=== PATIENT | female | born 1970 | race Caucasian/White ===

== ENCOUNTER 2016-11-19 15:36 | Emergency (ER) | payer OTHER ==
[~2016-11-19] VITALS: Ht 170.2 cm; Wt 102.1 kg
--- NOTE | 2016-11-19 16:10 | ER.PDOC ---
General Chief Complaint: Abdomen Pain Stated Complaint: LOWER L ABD PAIN Time seen by MD: 16:00 Source: patient Exam Limitations: no limitations History of Present Illness Initial Comments llq pain felt with twisting Timing/Duration: 1 hour Severity/Quality: mild Radiation: no radiation Associated Symptoms: denies symptoms Exacerbated by: movements Relieved By: supine Allergies: Coded Allergies: No Known Allergies (Unverified , 11/19/16) Vital Signs First Vital Signs Date Time Temp Pulse Resp B/P (MAP) Pulse Ox O2 Delivery O2 Flow Rate FiO2 11/19/16 15:46 98.8 96 18 99 11/19/16 15:49 156/91 (112) Last Vital Signs Date Time Temp Pulse Resp B/P (MAP) Pulse Ox O2 Delivery O2 Flow Rate FiO2 11/19/16 15:49 98.8 96 18 156/91 (112) 99 Past Medical History Medical History: hypertension LMP (females 10-50): 3 weeks Family History Significant Family History: no pertinent family hx Social History Smoking: less than 1 pack/day Alcohol Use: occassionally Drug Use: none Constitutional: denies fever EENTM: denies ear pain Cardiovascular: denies chest pain Gastrointestinal: denies abdomen distended Genitourinary: denies burning Musculoskeletal: denies back pain Psychiatric/Neurological: denies anxiety All Other Systems: Reviewed and Negative Physical Exam General Appearance: No Apparent Distress, WD/WN HEENT: PERRL/EOMI, Normal ENT Inspection, TMs Normal, Pharynx Normal Neck: Non-Tender, Full Range of Motion, Supple, Normal Inspection Respiratory: chest non-tender, lungs clear, normal breath sounds, no respiratory distress, no accessory muscle use Cardiovascular: Normal Peripheral Pulses, Regular Rate, Rhythm, No Edema, No Gallop, No JVD, No Murmur Gastrointestinal: Other (no hernia palpated soft non tender without rebound) Back: Normal Inspection, No CVA Tenderness, No Vertebral Tenderness Extremities: Normal Range of Motion, Non-Tender, Normal Inspection, No Pedal Edema, No Calf Tenderness, Normal Capillary Refill, Pelvis Stable 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
[2016-11-19 16:21] VITALS: BP 139/76
== END 2016-11-19 16:18 | disposition home or self-care (01) ==
LOC: ER 15:36
DX: R10.32 Left lower quadrant pain (principal); I10 Essential (primary) hypertension; F17.200 Nicotine dependence, unspecified, uncomplicated; X50.1XXA Overexertion from prolonged static or awkward postures, initial encounter; Y93.89 Activity, other specified; Y92.89 Other specified places as the place of occurrence of the external cause; Y99.8 Other external cause status
CPT/HCPCS: 99283

== ENCOUNTER → 2017-01-28 | Outpatient (CLI) | payer OTHER ==
--- NOTE | 2017-01-29 13:14 | STRESS ---
DATE OF SERVICE: 01/28/2017 INDICATIONS: A 46-year-old lady with chest pain, elected for evaluation with a stress test. The patient presented to the [facility] in a fasting condition as an outpatient on 01/28/2017. Baseline blood pressure was 130/78, heart rate of 67. EKG, normal sinus rhythm without any ischemic changes or blocks. The patient was exercised on standard Kaushal protocol. Total exercise time was 7 minutes 8 seconds achieving maximum heart rate of 146 beats per minute representing 100% of maximum age predicted heart rate. Maximum blood pressure reported was 182/76. Maximum METS were 8.76 METS. The blood pressure was noted and vital signs were monitored during exercise on standard Kaushal protocol. At stage 1, blood pressure was 135/71, heart rate of 112. At stage 2, blood pressure was 182/76, heart rate of 129. Recovery phase was uneventful, 6 minutes into recovery, blood pressure was 114/73, heart rate of 94, no EKG changes of ischemia noted, no arrhythmia was seen. The patient had normal hemodynamic response. Reason for termination was exertional shortness of breath, but no chest pain. IMPRESSION: 1. Normal stress test by EKG criteria. 2. Normal stress test by clinical criteria. 3. Average METS achieved with adequate functional capacity. 4. Normal hemodynamic response. 5. No arrhythmia was seen. 6. Fair exercise capacity with normal chronotropic competence. 7. Recovery was uneventful. This study qualifies for low risk for obstructive coronary artery disease by stress test criteria. Natalia Clement MD DR: CHRIS/homero JOB# [id number]
--- NOTE | 2017-01-29 16:01 | ECHO ---
DATE OF SERVICE: 01/28/2017 INDICATIONS: A 46-year-old lady with palpitations and hypertension, who elected for an echocardiographic study. FINDINGS: 1. Study quality was good. Underlying rhythm was sinus rhythm. 2. LV function was preserved at 60%. LV dimensions were normal at 5.8 cm in end-diastolic dimension. Minimal concentric LVH. No LVOT obstruction. Septal thickness was in the upper limits of normal. 3. RV size and EF were normal. 4. Both atria were normal in size. 5. Mitral valve was visualized: Trace regurgitation, no stenosis, and normal diastolic parameters. Mitral valve gradient by Doppler exam was around 2.7 mmHg, and therefore no stenosis. 6. Mild tricuspid regurgitation. PA pressure was 25 to 30 mmHg. 7. Aortic valve morphology is uncertain. No calcification noted. Trace regurgitation, no stenosis. Normal aortic valve area. 8. No pericardial effusion. 9. Inferior vena cava was normal in size at 2 cm. IMPRESSION: 1. EF 55% to 60%, mild concentric LVH, no LVOT obstruction, and no wall motion ability. 2. Upper limits of septal thickness. 3. Normal atrial size. 4. Normal RV size and EF. 5. No valvular dysfunction. 6. Normal diastolic parameters. 7. No pericardial effusion with a normal IVC size. Natalia Clement MD DR: CHRIS/homero JOB# [id number]
== END | disposition home or self-care (01) ==
LOC: RT 08:02
PROVIDERS: ATTEND Internal Medicine
DX: I10 Essential (primary) hypertension (principal); I25.10 Atherosclerotic heart disease of native coronary artery without angina pectoris; I07.1 Rheumatic tricuspid insufficiency; R00.2 Palpitations
CPT/HCPCS: 93017; 93307

== ENCOUNTER → 2020-08-09 | Outpatient (CLI) | payer OTHER ==
[2020-08-09] MEDS: LEXISCAN IV STA (11:09)
--- NOTE | 2020-08-10 00:01 | STRESS ---
DATE OF SERVICE: 08/09/2020 DICTATOR NAME: ZUNILDA KRISHNAMURTHYDIANDMITRY CARDIAC STRESS TEST INDICATION: Chest pain. FINDINGS: Baseline EKG shows sinus bradycardia, otherwise normal ECG. Stress EKG shows normal sinus rhythm, unchanged from baseline. At the end of recovery, the EKG shows normal sinus rhythm, unchanged from baseline. Baseline blood pressure is 131/79 and remained the same during stress. At the end of recovery, the blood pressure was 133/80. Baseline heart rate was 56 beats per minute and kelsey to 79 beats per minute during stress. At the end of recovery, the heart rate was 67 beats per minute. Blood pressure and heart rate were appropriate for stress. There were no significant symptoms noted during stress. There were no arrhythmias noted during stress. EKG portion of stress test is negative for myocardial ischemia. Nuclear images were obtained with a rest dose of 10.70 mCi technetium 99 sestamibi and a stress dose of 34.0 mCi technetium 99 sestamibi. Nuclear images reveal homogeneous tracer distribution across all wall segments in both rest and stress images with no evidence of myocardial ischemia or infarction. Left ventricular ejection fraction is 72%. EDV is 65 mL, ESV is 18 mL. The left ventricle is normal in size. Gated motion images shows normal wall motion across all segments of the left ventricle. TID is 1.26. There is no evidence of diaphragmatic attenuation artifact. IMPRESSION: 1. Normal myocardial perfusion imaging with no evidence of myocardial ischemia or infarction. 2. Left ventricular ejection fraction of 72%. 3. Gated motion images shows normal wall motion across all segments of the left ventricle. 4. This is a negative study. Julianna SY D.O. DR: PJ TID: [id number] RECEIPT: [id number]
== END | disposition home or self-care (01) ==
LOC: RAD 10:35
PROVIDERS: ATTEND Internal Medicine Interventional Cardiology
DX: I10 Essential (primary) hypertension (principal); R07.9 Chest pain, unspecified
CPT/HCPCS: 78452; 93017; A9500; J2785

== ENCOUNTER → 2020-08-20 | Outpatient (CLI) | payer OTHER | END | disposition home or self-care (01) | LOC: RT 15:00 | PROVIDERS: ATTEND Internal Medicine Interventional Cardiology | DX: I08.1 Rheumatic disorders of both mitral and tricuspid valves (principal); I10 Essential (primary) hypertension | CPT/HCPCS: 93306 ==

== ENCOUNTER → 2021-08-12 | Outpatient (CLI) | payer OTHER ==
--- NOTE | 2021-08-15 00:33 | PCM.ECHO ---
APPROVED REPORT EXAM: Comprehensive 2D, Doppler, and color-flow Echocardiogram. Patient Location: OUT-PATIENT Indications Hypertension/HDD Palpitations 2D Dimensions LVOT Diameter 2.29 (1.8-2.4cm) LVEF(%) 58.41 (>50%) M-Mode Dimensions RVDd 1.95 (2.1-3.2cm) Left Atrium(MM) 4.00 (2.5-4.0cm) IVSd 0.80 (0.7-1.1cm) Aortic Root 3.25 (2.2-3.7cm) LVDd 5.40 (4.0-5.6cm) Aortic Cusp Exc 2.00 (1.5-2.0cm) PWd 0.75 (0.7-1.1cm) MV EPSS 1.00 (<0.5cm) IVSs 1.45 cm FS (%) 32.75 % LVDs 3.65 (2.0-3.8cm) ESV(Teich) 56.34 ml PWs 1.25 cm LVEF(%) 60.72 (>50%) Volumes Biplane 2D LV Volumes Biplane 2D LA Volumes LVEDv A4C 143.79 mL LA ESV Index LVESv A4C 59.80 mL Aortic Valve AoV Peak Mario. 1.25 m/s AoV VTI 26.95 cm AO Peak GR. 6.50 mmHg AO Mean GR. 4.25 mmHg LVOT VTI 21.33 cm LVOT Peak Mario. 0.91 m/s CARMENZA(VTI)/BSA 3.24 cm2/m2 CARMENZA (VTI) 3.24 cm2 Mitral Valve MV E Velocity 0.90m/s MR Peak Gr. 6.15mmHg MV A Velocity 0.80m/s TDI Lateral E' P. V 0.12m/s Medial E' P. V 0.13m/s Pulmonary Valve PV Peak Velocity 0.95m/s PV Peak Grad. 3.70mmHg RVOT VTI 22.83cm Tricuspid Valve TR P. Velocity 1.50m/s RAP ESTIMATE 10.00mmHg TR Peak Gr. 9.44mmHg RVSP 19.44mmHg LEFT VENTRICLE The left ventricle is normal size. The left ventricular systolic function is normal. The left ventricular ejection fraction is within the normal range. There is normal left ventricular wall thickness. There is normal LV segmental wall motion. There is no ventricular septal defect visualized. No left ventricle thrombus noted on this study. LVEF is 60-65%. RIGHT VENTRICLE The right ventricle is normal size. The right ventricular systolic function is normal. There is normal right ventricular wall thickness. ATRIA The left atrium size is normal. The right atrium size is normal. The interatrial septum is intact with no evidence for an atrial septal defect. AORTIC VALVE The aortic valve is normal in structure. There is no aortic valvular stenosis. No aortic regurgitation is present. There is no aortic valvular vegetation. MITRAL VALVE The mitral valve is normal in structure. There is no mitral valve stenosis. Mild mitral regurgitation. There is no evidence of mitral valve vegetations. TRICUSPID VALVE The tricuspid valve is normal in structure. There is no tricuspid valve stenosis. Mild tricuspid regurgitation. There is no tricuspid valve vegetations. PULMONIC VALVE The pulmonary valve is normal in structure. There is no pulmonic valvular stenosis. There is no pulmonic valvular regurgitation. There is no pulmonic valve vegetations. GREAT VESSELS The aortic root is normal in size. Pulmonary artery is not well visualized. Aortic arch is not well visualized. The IVC is normal in size and collapses >50% with inspiration. PERICARDIUM There is no pericardial effusion. There is no pleural effusion. <Conclusion> The left ventricular systolic function is normal. LVEF is 60-65%. Mild mitral regurgitation. Mild tricuspid regurgitation. Electronically signed by : ZUNILDA YE. 08/15/2021 00:32:32
== END | disposition home or self-care (01) ==
LOC: RAD 14:07
PROVIDERS: ATTEND Nurse Practitioner Family
DX: I08.1 Rheumatic disorders of both mitral and tricuspid valves (principal); I49.1 Atrial premature depolarization; R00.2 Palpitations; I10 Essential (primary) hypertension
CPT/HCPCS: 93306

== ENCOUNTER → 2022-12-25 | Outpatient (CLI) | payer OTHER ==
[2022-12-25 08:53] LABS: BASOPHIL % 0.3 % (0.0-0.2); EOSINOPHIL # 0.3 10^3/uL (0.0-0.2); EOSINOPHIL % 5.2 % (0.0-5.0); HEMATOCRIT(ML) 40.7 % (36.0-46.0); HEMOGLOBIN 13.4 g/dL (12.0-15.0); LYMPHOCYTES # 1.09 10^3/uL1 (1.0-4.8); LYMPHOCYTES % 17.6 % (24.0-44.0); MEAN CORP HGB 26.2 pg (26-34); MEAN CORP HGB CONCENTRATION 32.9 g/dL (33-36.5); MEAN CORP VOLUME 79.5 fL (78-100); MONOCYTES # 0.5 10^3/uL (0.3-0.8); MONOCYTES % 8.2 % (5.0-12.0); NEUTROPHIL # 4.2 10^3/uL (1.8-7.7); NEUTROPHILS % 68.1 % (41.0-85.0); PLATELET COUNT 296 10^3/uL (150-400); RED BLOOD CELL 5.12 10^6/uL (4.00-5.20); RED CELL DISTRIBUTION WIDTH 14.6 % (11.5-14.5); WHITE BLOOD CELL 6.2 10^3/uL (4.5-11.0)
[2022-12-25 08:54] LABS: +ADD MANUAL DIFF(NO CHRG) NO
[2022-12-25 09:24] LABS: ALANINE AMINOTRANSFERASE(ML) 33 U/L (12-78); ALBUMIN(ML) 3.4 g/dL (3.4-5.0); ALBUMIN/GLOBULIN RATIO 0.944; ALKALINE PHOSPHATASE 54 U/L (50-136); ANION GAP 13.1; ASPARTATE AMINO TRANSFERASE 15 U/L (0-35); CHOLESTEROL 250 mg/dL (120-240); CREATININE SERUM 0.99 mg/dL (0.59-1.40); EST GFR, NON-AA 58.5 (>/=60); GLUCOSE 116 mg/dL (74-106); HDL CHOLESTEROL 35 mg/dL (32-96); POTASSIUM 4.1 mmol/L (3.6-5.2); SODIUM 136 mmol/L (132-145)
== END | disposition home or self-care (01) ==
LOC: LAB 08:36
PROVIDERS: ATTEND Nurse Practitioner Family
DX: I10 Essential (primary) hypertension (principal); E78.5 Hyperlipidemia, unspecified
CPT/HCPCS: 36415; 80053; 80061; 85025

== ENCOUNTER → 2023-01-29 | Outpatient (CLI) | payer OTHER | END | disposition home or self-care (01) | LOC: RAD 15:03 | PROVIDERS: ATTEND Nurse Practitioner Family | DX: I08.1 Rheumatic disorders of both mitral and tricuspid valves (principal); R06.02 Shortness of breath | CPT/HCPCS: 93306 ==

== ENCOUNTER → 2023-03-23 | Outpatient (CLI) | payer OTHER ==
[~2023-03-23] MED LIST: LEXISCAN IV ONE
[2023-03-23 12:54] LABS: ALBUMIN(ML) 3.6 g/dL (3.4-5.0); ALBUMIN/GLOBULIN RATIO 0.9; ANION GAP 14.3; BUN/CREATININE RATIO 17.94 (10.0-20.0); CALCIUM 9.4 mg/dL (8.4-10.5); CARBON DIOXIDE 27.4 mmol/L (20.0-32); CREATININE SERUM 0.78 mg/dL (0.59-1.40); LDL/HDL RATIO 4.7; POTASSIUM 3.7 mmol/L (3.6-5.2)
== END | disposition home or self-care (01) ==
LOC: RAD 10:37
PROVIDERS: ATTEND Nurse Practitioner Family
DX: R07.9 Chest pain, unspecified (principal); R94.30 Abnormal result of cardiovascular function study, unspecified; I10 Essential (primary) hypertension; Z13.1 Encounter for screening for diabetes mellitus; E78.5 Hyperlipidemia, unspecified
CPT/HCPCS: 78452; 80061; 80053; 36415; 83036; 93017; A9500